=== PATIENT | female | born 1995 | race Hispanic/Latino ===

== ENCOUNTER → 2022-08-27 | Outpatient (CLI) | payer OTHER | END | disposition home or self-care (01) | LOC: RAH 12:29 | PROVIDERS: ATTEND Physical Medicine & Rehabilitation | DX: M54.51 Vertebrogenic low back pain (principal); M99.05 Segmental and somatic dysfunction of pelvic region | CPT/HCPCS: 72114 ==

== ENCOUNTER → 2024-01-14 | Outpatient (CLI) | payer OTHER | END | disposition home or self-care (01) | LOC: RAH 14:11 | PROVIDERS: ATTEND Physical Medicine & Rehabilitation | DX: M54.16 Radiculopathy, lumbar region (principal); M54.32 Sciatica, left side | CPT/HCPCS: 76857 ==

== ENCOUNTER 2025-08-20 18:13 | Emergency (ER) | payer OTHER ==
[~2025-08-20] VITALS: Ht 160 cm; Wt 68.0 kg
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
[2025-08-20] MEDS ORDERED: CYCL-309 PO (19:54)
[2025-08-20] MEDS: diazePAM 5 MG TAB PO ONE (19:56)
[2025-08-20 20:59] VITALS: BP 139/77; PULSE 58; RESP 16; TEMP 98.5; O2SAT 99
== END 2025-08-20 21:00 | disposition home or self-care (01) ==
LOC: EDH 18:13
DX: M54.41 Lumbago with sciatica, right side (principal); G89.29 Other chronic pain
CPT/HCPCS: 99284; 96372 ×2; J1100; J1885